=== PATIENT | male | born 1950 | race Caucasian/White ===

== ENCOUNTER 2024-06-26 01:40 | Inpatient (IN) | payer OTHER, MEDICARE ==
[2024-06-26] VITALS (18 sets, daily range): BP systolic 102–134; BP diastolic 67–92; PULSE 60–89; RESP 16–20; TEMP 97.4–98.6; O2SAT 94–100
[~2024-06-26] VITALS: Ht 167.6 cm; Wt 54.8 kg
--- NOTE | 2024-06-26 02:21 | ED.PDOC ---
History of Present Illness HPI Comments 73-year-old male presents with a chief complaint of syncope x last night. Patient states that he had a syncopal episode last night and did hit his head. Patient denies use of blood thinners. Patient also mentions that he has been feeling like "my body is not getting enough oxygen, like my heart isn't getting enough oxygen". Patient denies history of COPD, CHF, or Asthma. No other symptoms or modifying factors present at this time. Time Seen by MD: 02:11 Reviewed Notes: Medications, Allergies Allergies: Coded Allergies: NO KNOWN ALLERGIES (Unverified , 01/12/12) Home Meds No Active Prescriptions or Reported Meds Information Source: Patient Mode of Arrival: Ambulatory Severity: Moderate Timing: Hours Duration: Since onset Prehospital treatment: None Past Medical History PAST MEDICAL HISTORY: Denies Family History Family History: Unknown Social History Smoker: Cigarettes Alcohol: Heavy Drugs: Marijuana, Methamphetamine Lives In: Home Constitutional: denies: chills, diaphoresis, fatigue, fever, malaise, sweats, weakness, others EENTM: denies: blurred vision, double vision, ear bleeding, ear discharge, ear drainage, ear pain, ear ringing, eye pain, eye redness, hearing loss, mouth pain, mouth swelling, nasal discharge, nose bleeding, nose congestion, nose pain, photophobia, tearing, throat pain, throat swelling, voice changes, others Respiratory: denies: cough, hemoptysis, orthopnea, SOB at rest, shortness of breath, SOB with excertion, stridor, wheezing, others Cardiovascular: reports: syncope; denies: chest pain, dizzy spells, diaphoresis, Dyspnea on exertion, edema, irregular heart beat, left arm pain, lightheadedness, palpitations, PND, others Gastrointestinal: denies: abdomen distended, abdominal pain, blood streaked bowels, constipated, diarrhea, dysphagia, difficulty swallowing, hematemesis, melena, nausea, poor appetite, poor fluid intake, rectal bleeding, rectal pain, vomiting, others Genitourinary: denies: burning, dysuria, flank pain, frequency, hematuria, incontinence, penile discharge, penile sore, pain, testicle pain, testicle swelling, urgency, others Neurological: denies: dizziness, fainting, headache, left sided numbness, left sided weakness, numbness, paresthesia, pre-existing deficit, right sided numbness, right sided weakness, seizure, speech problems, tingling, tremors, weakness, others Musculoskeletal: denies: back pain, gout, joint pain, joint swelling, muscle pain, muscle stiffness, neck pain, others Integumetry: denies: bruises, change in color, change in hair/nails, dryness, laceration, lesions, lumps, rash, wounds, others Allergic/Immunocompromised: denies: Difficulty Healing, Frequent Infections, Hives, Itching, others Hematologic/Lymphatic: denies: anemia, blood clots, easy bleeding, easy bruising, swollen glands, others Endocrine: denies: excessive hunger, excessive sweating, excessive thirst, excessive urination, flushing, intolerance to cold, intolerance to heat, unexplained weight gain, unexplained weight loss, others Psychiatric: denies: anxiety, bipolar disorder, depression, hopeless, panic disorder, schizophrenia, sleepless, suicidal, others All Other Systems: Reviewed and Negative Physical Exam General Appearance: No Apparent Distress, Normal HEENT: Normal ENT Inspection, Pharynx Normal, TMs Normal Neck: Full Range of Motion, Non-Tender, Normal, Normal Inspection Respiratory: Chest Non-Tender, Lungs Clear, No Accessory Muscle Use, No Respiratory Distress, Normal Breath Sounds Cardiovascular: No Edema, No JVD, No Murmur, No Gallop, Normal Peripheral Pulses, Regular Rate/Rhythm Breast Exam: Deferred Gastrointestinal: No Organomegaly, Non Tender, No Pulsatile Mass, Normal Bowel Sounds, Soft Genitalia: Deferred Pelvic: Deferred Rectal: Deferred Extremities: No calf tenderness, Normal capillary refill, Normal inspection, Normal range of motion, Non-tender, No pedal edema Musculoskeletal : Apperance: Normal Neurologic: Alert, superintendent gas distribution II-XII nml as Tested, No Motor Deficits, Normal Affect, Normal Mood, No Sensory Deficits Cerebellar Function: Normal Reflexes: Normal Skin: Dry, Normal Color, Warm Lymphatic: No Adenopathy Was a procedure done? Was a procedure done?: No Differential Dx Considerations may include: ACS, CVA, viral syndrome, should abnormality, infectious etiology X-Ray, Labs, Meds, VS Vital Signs Date Time Temp Pulse Resp B/P (MAP) Pulse Ox O2 Delivery O2 Flow Rate FiO2 06/26/24 02:21 78 06/26/24 01:45 98.2 78 22 141/87 (105) 98 98.2 Lab Test 06/26/24 02:45 06/26/24 02:29 Range/Units Urine Color Pending Urine Clarity Pending Urine pH Pending Urine Specific [place] Pending Urine Protein Pending Urine Ketones Pending Urine Blood Pending Urine Nitrite Pending Urine Bilirubin Pending Urine Urobilinogen Pending Urine Leukocyte Esterase Pending Urine RBC Pending Urine Microscopic WBC Pending Urine Squamous Epithelial Cells Pending Urine Bacteria Pending Urine Glucose Pending White Blood Count 10.5 4.4-10.8 10^3/uL Red Blood Count 4.73 4.5-5.90 10^6/uL Hemoglobin 15.0 13.5-17.5 g/dL Hematocrit 43.8 41.0-53.0 % Mean Corpuscular Volume 92.5 80.0-100.0 fL Mean Corpuscular Hemoglobin 31.8 28.0-32.0 pg Mean Corpuscular Hemoglobin Concent 34.3 32.0-36.0 g/dL Red Cell Distribution Width 14.1 11.8-14.3 % Platelet Count 302 140-450 10^3/uL Mean Platelet Volume 8.0 6.9-10.8 fL Neutrophils (%) (Auto) 41.5 37.0-80.0 % Lymphocytes (%) (Auto) 42.4 10.0-50.0 % Monocytes (%) (Auto) 13.8 H 0.0-12.0 % Eosinophils (%) (Auto) 1.6 0.0-7.0 % Basophils (%) (Auto) 0.7 0.0-2.0 % Neutrophils # (Auto) 4.3 1.6-8.6 10 ^3/uL Lymphocytes # (Auto) 4.4 0.4-5.4 10 ^3/uL Monocytes # (Auto) 1.4 H 0-1.3 10 ^3/uL Eosinophils # (Auto) 0.2 0-0.8 10 ^3/uL Basophils # (Auto) 0.1 0-0.2 10 ^3/uL Nucleated Red Blood Cells 0.1 % Sodium Level 140 136-145 mmol/L Potassium Level 3.9 3.5-5.1 mmol/L Chloride Level 104 98-107 mmol/L Carbon Dioxide Level 27 20-31 mmol/L Anion Gap 9 5-15 Blood Urea Nitrogen 16 9-23 mg/dL Creatinine 1.02 0.700-1.30 mg/dL Glomerular Filtration Rate Calc 79 >90 mL/min BUN/Creatinine Ratio 15.7 10.0-20.0 Serum Glucose 74 74-106 mg/dL Calcium Level 9.6 8.7-10.4 mg/dL Troponin I High Sensitivity 5 </=54 ng/L B-Type Natriuretic Peptide 42.35 0-100 pg/mL Time of 1ST Reevaluation: 02:41 Reevaluation 1ST: Unchanged Patient Education/Counseling: Diagnosis, Treatment Family Education/Counseling: No Family Present Departure 1 Departure Time of Disposition: 03:11 (Patient presented with syncope today and should be admitted. Data: 1. I ordered and reviewed the result of at least 3 labs including a CBC, BMP, and troponin. 2. I independently interpreted the following tests: EKG which shows a sinus arrhythmia and a chest x-ray which shows benign chest and a CT head which shows benign brain.Risk:This patient has a high risk of morbidity due to further diagnostic testing or treatment and may suffer from an acute cardiac, neurologic, or infectious disorder. Rationale: Patient should be admitted to the hospital for further management.) Impression: Primary Impression: Syncope and collapse Additional Impression: Generalized weakness Disposition: 09 ADMITTED INPATIENT Admit to: Tele Condition: Guarded e-Prescriptions No Active Prescriptions or Reported Meds Critical Care Note Critical Care Time?: Yes Critical care comment: Syncope and collapse Authorized and Performed by: Rafi Levi MD Total critical care time: Approximately 39 minutes Due to a high probability of clinically significant, life threatening deterioration, the patient required my highest level of preparedness to intervene emergently and I personally spent this critical care time directly and personally managing the patient. This critical care time included obtaining a history; examining the patient; pulse oximetry; ordering and review of studies; arranging urgent treatment with development of a management plan; evaluation of patient's response to treatment; frequent reassessment; and, discussions with other providers. This critical care time was performed to assess and manage the high probability of imminent, life-threatening deterioration that could result in multi-organ failure. It was exclusive of separately billable procedures and treating other patients and teaching time. Please see my other sections and the rest of the note for further information on patient assessment and treatment. Stability Stability form required: No Heart Score Heart Score: Heart Score Response (Comments) Value History N/A 0 EKG N/A 0 Age N/A 0 Risk Factors N/A 0 Troponin N/A 0 Total 0 I personally scribed for RAFI LEVI MD ([email or web address]) on 06/26/24 at 02:21. Electronically submitted by Saurabh Esteban ([email or web address]). RAFI LEVI MD Jun 26, 2024 02:21
[2024-06-26 02:47] LABS: Basophils # (auto) 0.1 10 ^3/uL (0-0.2); Basophils % (auto) 0.7 % (0.0-2.0); Eosinophils # (auto) 0.2 10 ^3/uL (0-0.8); Eosinophils % (auto) 1.6 % (0.0-7.0); Hematocrit 43.8 % (41.0-53.0); Lymphocytes # (auto) 4.4 10 ^3/uL (0.4-5.4); Lymphocytes % (auto) 42.4 % (10.0-50.0); Mean Corpuscular Hemoglobin 31.8 pg (28.0-32.0); Mean Corpuscular Hgb Conc. 34.3 g/dL (32.0-36.0); Mean Corpuscular Volume 92.5 fL (80.0-100.0); Monocytes # (auto) 1.4 10 ^3/uL (0-1.3); Monocytes % (auto) 13.8 % (0.0-12.0); Neutrophils # (auto) 4.3 10 ^3/uL (1.6-8.6); Neutrophils % (auto) 41.5 % (37.0-80.0); Nucleated Red Blood Cells % 0.1 %; Platelet Count (auto) 302 10^3/uL (140-450); Red Blood Cells 4.73 10^6/uL (4.5-5.90); Red Cell Distribution Width 14.1 % (11.8-14.3); White Blood Cell 10.5 10^3/uL (4.4-10.8)
[2024-06-26 02:51] LABS: Chloride 104 mmol/L (98-107); Potassium 3.9 mmol/L (3.5-5.1); Sodium 140 mmol/L (136-145)
[2024-06-26 02:52] LABS: Anion Gap 9 (5-15); Calcium 9.6 mg/dL (8.7-10.4); Carbon Dioxide 27 mmol/L (20-31)
[2024-06-26 02:57] LABS: BUN/Creatinine Ratio 15.7 (10.0-20.0); Blood Urea Nitrogen 16 mg/dL (9-23); Glucose 74 mg/dL (74-106)
--- NOTE | 2024-06-26 02:58 | DVH ---
EXAM: CT HEAD WITHOUT CONTRAST INDICATION: syncope TECHNIQUE: CT of the head without intravenous contrast. Radiation Dose : 1. Head: CT Dose: CTDI volume is 50.99 mGy. Dose-length product is 817.55 mGy*cm The dose indicators for CT are the volume Computed Tomography (CT) Dose Index (CTDIvol) and the Dose Length Product (DLP), and are measured in units of mGy and mGy-cm, respectively. These indicators are not patient dose, but values generated from the CT scanner acquisition factors. The report includes radiation exposure data for exposures received during this examination. COMPARISON: None FINDINGS: There is no evidence of acute intracranial hemorrhage, extra-axial collection, mass effect, midline s hift, herniation or hydrocephalus. The ventricles, sulci and cisterns are age appropriate. The pina-white differentiation is intact. Patchy periventricular and subcortical white matter hypoattenuation is nonspecific but may be related to small vessel ischemic disease. Diffuse sinus disease. The mastoid air cells are clear. The surrounding soft tissues and osseous structures are unremarkable. IMPRESSION: 1. No acute intracranial abnormality. Radiation optimization: All CT scans at this facility use at least one of these dose optimization umesh hniques: automated exposure control mA and/or kV adjustment per patient size (includes targeted exam s where dose is matched to clinical indication) or iterative reconstruction.
--- NOTE | 2024-06-26 02:59 | DVH ---
CHEST RADIOGRAPH Indication: syncope Technique: Single frontal view of the chest was obtained COMPARISON: None FINDINGS: Lines and Tubes: None Lungs: Clear Pleura: No effusion. No pneumothorax. Cardiomediastinal contours: Unremarkable Bones: Unremarkable IMPRESSION: 1. No acute disease.
[2024-06-26 03:05] LABS: Urine Bacteria None Seen /hpf (None Seen)
[2024-06-26 03:13] LABS: Urine Blood Negative /uL (Negative); Urine Clarity Clear (Clear); Urine Color Yellow (Yellow); Urine Mucus FEW (None Seen); Urine Protein, UAD TRACE (Negative); Urine Specific Gravity 1.025 (1.001-1.035); Urine Squamous Epithelial Cell FEW /hpf (<5); Urine Urobilinogen 4 mg/dL (Negative); Urine WBC < 1 /HPF (0-3); Urine pH 5.5 (5.0-9.0)
[2024-06-26 04:10] LABS: COVID19 ANTIGEN SOFIA FIA NEGATIVE (NEGATIVE); Rapid Influenza A Negative (Negative); Rapid Influenza B Negative (Negative)
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
[2024-06-26] MEDS ORDERED: MORPHINE SULFATE INJ 2 MG/ml SYRG IV PRN (04:30)
[2024-06-26] MEDS: methylPREDNISolone SOD SUCC 40 MG/ML VL IV SCH (04:30)
[2024-06-26] MEDS ORDERED: NITROGLYCERIN 0.4 MG SL TAB SL PRN (04:30)
[2024-06-26] MEDS: ATORVASTATIN 20 MG TAB PO ONE (04:48)
[2024-06-26] MEDS: NICOTINE 21MG/24 HR TOPICAL PATCH TD ONE (04:50)
[2024-06-26] MEDS: IOHEXOL 350 MG/ML 100ML IJ ONE (05:10)
[2024-06-26] MEDS: AZITHROMYCIN 500MG/ 250ML 250 ML IV SCH (05:24)
--- NOTE | 2024-06-26 05:55 | DVH ---
CTA Chest with intravenous contrast INDICATION: r/o pe and aortic pathology COMPARISON: Chest radiograph performed earlier same date TECHNIQUE: Multidetector spiral CTA of the chest was performed of the chest with 100 cc of Omnipaque 350 intravenous contrast. PULMONARY ANGIOGRAPHY PROTOCOL was utilized using a bolus-tracking techniqu e centered on the main pulmonary artery. Coronal and sagittal multiplanar and MIP reformats were perf ormed. Radiation Dose : 1. Chest: CTDI volume is 8.88 mGy. Dose-length product is 251.97 mGy*cm The dose indicators for CT are the volume Computed Tomography (CT) Dose Index (CTDIvol) and the Dose Length Product (DLP), and are measured in units of mGy and mGy-cm, respectively. These indicators are not patient dose, but values generated from the CT scanner acquisition factors. The report includes radiation exposure data for exposures received during this examination. FINDINGS: Pulmonary artery: No central, lobar or proximal segmental pulmonary embolus. Lower neck: Normal thyroid. Lungs: Right lower lobe reticular nodular opacities. Right middle lobe left upper lobe opacities. Ri ght lower lobe peribronchial wall thickening. Centrilobular emphysema. Central airways: Patent. Pleura: No pneumothorax. No pleural effusions. Heart/Vascular Structures: The heart is normal in size. Mild coronary artery calcifications. No peric ardial effusion. Thoracic aorta is normal in caliber. Atherosclerotic calcifications in the thoracic aorta. No aneurysm or dissection. Lymph Nodes: No mediastinal or hilar lymphadenopathy. Esophagus:Grossly unremarkable. Musculoskeletal: Unremarkable. Body wall: Unremarkable. Upper abdomen: Unremarkable. IMPRESSION: 1. No evidence of pulmonary embolism. 2. No thoracic aortic aneurysm. 3. Bronchitis and right lower lobe opacities which may be infectious or inflammatory in etiology. Ad ditional opacities in the right middle lobe and left upper lobe may represent atelectasis or addition al infectious or inflammatory etiology. 4. Emphysema.
[2024-06-26 06:17] LABS: Bilirubin, Direct 0.1 mg/dL (<0.3); Bilirubin, Total 0.3 mg/dL (0.2-1.0); Magnesium 2.1 mg/dL (1.6-2.6); Total Protein 6.6 g/dL (5.7-8.2)
[2024-06-26 06:28] LABS: Partial Thromboplastin Time 30.5 SEC (24.5-34.5); Prothrombin Time 10.6 sec (9.3-11.8)
--- NOTE | 2024-06-26 06:51 | ECG ---
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
[2024-06-26] MEDS: IPRATROPIUM BROM 0.5 MG/2.5ML INH SOL NEB SCH (07:36)
[2024-06-26] MEDS: ALBUTEROL SULF 2.5 MG/0.5ML(0.5%) NEB SOLN NEB SCH (07:36)
[2024-06-26] MEDS: NICOTINE 21MG/24 HR TOPICAL PATCH TD SCH (09:24)
[2024-06-26] MEDS: ASPirin 81 mg TAB PO SCH (09:25)
[2024-06-26] MEDS: ENOXAPARIN SOD 40 MG/0.4 ML SYRINGE SC SCH (09:26)
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
--- NOTE | 2024-06-26 11:33 | DVH ---
PROCEDURE: US CAROTID DUPLX W COLOR DOP 06/26/2024 09:52 AM INDICATION: Syncope. COMPARISON: None TECHNIQUE: Real-time grayscale and color Doppler images of the neck arteries were obtained with spect ral analysis performed. The examination was difficult due to patient cooperation, moving and talking throughout the exam. FINDINGS: RIGHT: Intimal thickening throughout the CCA. Small calcified plaques are seen in the CCA and ICA. N ormal spectral waveforms are seen. ICA peak systolic velocity: 113 cm/s ICA end-diastolic velocity: 3 5 cm/s ICA/CCA ratios: 1.3 LEFT: Intimal thickening throughout the CCA. Small calcified plaques are seen in the CCA and ICA. No rmal spectral waveforms are noted. ICA peak systolic velocity: 124 cm/s ICA end-diastolic velocity: 4 8 cm/s ICA/CCA ratios: 1.1 VERTEBRAL ARTERIES: Normal antegrade flow is seen bilaterally. Normal spectral waveforms. IMPRESSION: 1. No hemodynamically significant carotid artery stenosis identified bilaterally. Reference: Radiology 2003; 229:[id number] Normal ICA PSV is <125 cm/sec and no plaque or intimal thickening is visible sonographically addition al criteria include ICA/CCA PSV ratio <2.0 and ICA EDV <40 cm/sec <50% ICA stenosis ICA PSV is <125 cm/sec and plaque or intimal thickening is visible sonographically additional criteria include ICA/CCA PSV ratio <2.0 and ICA EDV <40 cm/sec 50-69% ICA stenosis ICA PSV is 125-230 cm/sec and plaque is visible sonographically additional criter ia include ICA/CCA PSV ratio of 2.0-4.0 and ICA EDV of 40-100 cm/sec 70% ICA stenosis but less than near occlusion ICA PSV is >230 cm/sec and visible plaque and luminal narrowing are seen at pina-scale and color Doppler ultrasound (the higher the Doppler parameters lie above the threshold of 230 cm/sec, the greater the likelihood of severe disease) additional criteria include ICA/CCA PSV ratio >4 and ICA EDV >100 cm/sec
--- NOTE | 2024-06-26 12:05 | DVH ---
EXAM: US BILAT LOW EXT ART DUPLEX HISTORY: pad COMPARISON: None TECHNIQUE: Realtime grayscale and color Doppler ultrasound images of the lower extremity arteries wi th spectral waveform analysis were obtained. FINDINGS: RIGHT: Mild diffuse plaque formation noted. No hemodynamically significant stenosis noted. Multi ph asic waveforms are seen throughout the lower extremity arteries. Peak systolic velocities measure up to 99 cm/s. LEFT: Mild diffuse plaque formation noted. No hemodynamically significant stenosis noted. Monophasi c waveforms in the popliteal, posterior tibial, anterior tibial and dorsalis pedis arteries. The rem ainder of the arteries demonstrate multiphasic waveforms. Peak systolic velocities measure up to 101 cm/s. IMPRESSION: 1. Mild diffuse atherosclerotic disease throughout the bilateral lower extremities without significan t stenosis. 2. Monophasic waveforms in the left popliteal and below knee arteries reflecting vessel hardening and loss of elastic recoil. REFERENCE VALUES, [facility] ([facility]) vascular Imaging Lab Criteria: Peak systolic velocity ranges (in cm/sec) are as follows: <150 cm/s - <20 % stenosis 150-200 cm/s - 20-49% stenosis 200-300 cm/s - 50-75% stenosis >300 cm/s -> 75% stenosis
[2024-06-26] MEDS: cefTRIAXone 1GM/50ML D5W 50 ML IV SCH (14:07)
[2024-06-26 14:23] LABS: Opiate Scree,Urine Neg (NEGATIVE); Phencyclidine Screen, Urine Neg (NEGATIVE)
[2024-06-26 14:24] LABS: Cannabinoid Screen, Urine Pos (NEGATIVE)
[2024-06-26 14:29] LABS: Amphetamine Screen, Urine Pos (NEGATIVE); Barbiturate Scree,Urine Neg (NEGATIVE); Benzodiazephine Screen, Urine Neg (NEGATIVE); Cocaine Screen, Urine Neg (NEGATIVE)
--- NOTE | 2024-06-26 17:57 | DVHSR ---
APPROVED REPORT EXAM: Two-dimensional and M-mode echocardiogram with Doppler and color Doppler. Blood Pressure: 102/72 mmHg INDICATION Syncope RISK FACTORS Height: 5'6", Weight: 115 DIMENSIONS LVDd3.3 (3.8-5.7cm)LA (2D)3.3 (1.9-4.0cm)Aortic Root3.7 (2.0-3.7cm) LVDs2.4 (2.5-4.0cm)LA (MM) (1.9-4.0cm)Aortic Cusp Exc1.1 (1.5-2.0cm) EF (%) 60.0 (55-70%)Rt. Atrium4.7 (1.9-4.0cm)Asc. Aorta cm IVSd1.0 (0.7-1.1cm)RV (D)3.5 (1.8-2.4cm) PWd1.0 (0.7-1.1cm) Mitral Valve MitralMitral Stenosis E wave0.77m/sMV Mean GR.mmHg A wave1.13m/sMV Peak GR.mmHg E/A ratio0.72D MVAcm2 DECEL [id number] 1/2 Timems Aortic Valve Aortic ValveAortic Stenosis V11.11m/Kayla Mean GR.4mmHg V21.37m/Kayla Peak GR.7mmHg LVOT Diameter1.9 (1.8-2.4cm)Doppler AVA2.30cm2 Other Information Technically limited study due to body habitus. Conclusion lvef 65% moderate LVH normal RV function , mild RV enlargement no severe valve abnormaliteis noted
[2024-06-26] MEDS: ATORVASTATIN 20 MG TAB PO SCH (20:18)
[2024-06-27] VITALS (18 sets, daily range): BP systolic 108–128; BP diastolic 66–79; PULSE 63–80; RESP 18–22; TEMP 76–98.1; O2SAT 93–100
[2024-06-27 06:18] LABS: Basophils # (auto) 0.1 10 ^3/uL (0-0.2); Basophils % (auto) 0.7 % (0.0-2.0); Eosinophils # (auto) 0.2 10 ^3/uL (0-0.8); Eosinophils % (auto) 1.7 % (0.0-7.0); Hematocrit 42.6 % (41.0-53.0); Hemoglobin 14.7 g/dL (13.5-17.5); Lymphocytes # (auto) 2.9 10 ^3/uL (0.4-5.4); Lymphocytes % (auto) 31.7 % (10.0-50.0); Mean Corpuscular Hemoglobin 31.3 pg (28.0-32.0); Mean Corpuscular Hgb Conc. 34.5 g/dL (32.0-36.0); Mean Corpuscular Volume 90.8 fL (80.0-100.0); Monocytes # (auto) 1.2 10 ^3/uL (0-1.3); Monocytes % (auto) 13.2 % (0.0-12.0); Neutrophils # (auto) 4.9 10 ^3/uL (1.6-8.6); Neutrophils % (auto) 52.7 % (37.0-80.0); Nucleated Red Blood Cells % 0.1 %; Platelet Count (auto) 287 10^3/uL (140-450); Red Blood Cells 4.69 10^6/uL (4.5-5.90); Red Cell Distribution Width 13.8 % (11.8-14.3); White Blood Cell 9.3 10^3/uL (4.4-10.8)
[2024-06-27 06:46] LABS: Alanine Aminotransferase 14 U/L (7-40); Albumin 3.9 g/dL (3.2-4.8); Alkaline Phosphatase 62 U/L (46-116); Anion Gap 8 (5-15); BUN/Creatinine Ratio 15.8 (10.0-20.0); Blood Urea Nitrogen 12 mg/dL (9-23); Calcium 9.2 mg/dL (8.7-10.4); Carbon Dioxide 23 mmol/L (20-31); Chloride 105 mmol/L (98-107); Glucose 99 mg/dL (74-106); Total Protein 6.6 g/dL (5.7-8.2)
[2024-06-27 06:47] LABS: Bilirubin, Total 0.6 mg/dL (0.2-1.0)
[2024-06-27 06:53] LABS: Aspartate Aminotransferase 10 U/L (13-40); Sodium 136 mmol/L (136-145)
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
[2024-06-27] MEDS: KETOROLAC TROMETH 30 MG/ML 1ML VIAL IV ONE (17:27)
[2024-06-27] MEDS: ACETAMINOPHEN 325 MG TAB PO PRN (17:28)
[2024-06-28] VITALS (18 sets, daily range): BP systolic 101–121; BP diastolic 57–77; PULSE 58–74; RESP 16–22; TEMP 97.4–98.1; O2SAT 72–100
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
[2024-06-29] VITALS (20 sets, daily range): BP systolic 100–121; BP diastolic 54–78; PULSE 69–85; RESP 16–22; TEMP 97.2–98.2; O2SAT 93–100
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
[2024-06-29] MEDS: MELATONIN 5 MG TAB PO PRN (21:16)
[2024-06-30] VITALS (8 sets, daily range): BP systolic 106–118; BP diastolic 60–83; PULSE 76–88; RESP 16–18; TEMP 97.8–98.1; O2SAT 90–100
[2024-06-30] MEDS: ALPRAZolam 0.5 MG TAB PO ONE (09:21)
[2024-06-30 10:07] LABS: QuantiFERON-TB Gold Plus Positive (Negative)
--- NOTE | 2024-06-30 11:20 | DVHDS2 ---
Discharge Summary Date of Admission Jun 26, 2024 at 04:26 Date of Discharge: Jun 30, 2024 Labs/Diagnostic Data: Laboratory Results Test 06/29/24 05:07 06/27/24 05:56 06/26/24 15:52 06/26/24 13:45 HIV (1&2) Antibody Negative (Negative) White Blood Count 9.3 10^3/uL (4.4-10.8) Red Blood Count 4.69 10^6/uL (4.5-5.90) Hemoglobin 14.7 g/dL (13.5-17.5) Hematocrit 42.6 % (41.0-53.0) Mean Corpuscular Volume 90.8 fL (80.0-100.0) Mean Corpuscular Hemoglobin 31.3 pg (28.0-32.0) Mean Corpuscular Hemoglobin Concent 34.5 g/dL (32.0-36.0) Red Cell Distribution Width 13.8 % (11.8-14.3) Platelet Count 287 10^3/uL (140-450) Mean Platelet Volume 7.9 fL (6.9-10.8) Neutrophils (%) (Auto) 52.7 % (37.0-80.0) Lymphocytes (%) (Auto) 31.7 % (10.0-50.0) Monocytes (%) (Auto) 13.2 % (0.0-12.0) Eosinophils (%) (Auto) 1.7 % (0.0-7.0) Basophils (%) (Auto) 0.7 % (0.0-2.0) Neutrophils # (Auto) 4.9 10 ^3/uL (1.6-8.6) Lymphocytes # (Auto) 2.9 10 ^3/uL (0.4-5.4) Monocytes # (Auto) 1.2 10 ^3/uL (0-1.3) Eosinophils # (Auto) 0.2 10 ^3/uL (0-0.8) Basophils # (Auto) 0.1 10 ^3/uL (0-0.2) Nucleated Red Blood Cells 0.1 % Sodium Level 136 mmol/L (136-145) Potassium Level 4.0 mmol/L (3.5-5.1) Chloride Level 105 mmol/L (98-107) Carbon Dioxide Level 23 mmol/L (20-31) Anion Gap 8 (5-15) Blood Urea Nitrogen 12 mg/dL (9-23) Creatinine 0.76 mg/dL (0.700-1.30) Glomerular Filtration Rate Calc 96 mL/min (>90) BUN/Creatinine Ratio 15.8 (10.0-20.0) Serum Glucose 99 mg/dL (74-106) Calcium Level 9.2 mg/dL (8.7-10.4) Total Bilirubin 0.6 mg/dL (0.2-1.0) Aspartate Amino Transferase (AST) 10 U/L (13-40) Alanine Aminotransferase (ALT) 14 U/L (7-40) Alkaline Phosphatase 62 U/L (46-116) Total Protein 6.6 g/dL (5.7-8.2) Albumin 3.9 g/dL (3.2-4.8) TB Test (QFT) Gold Plus Positive (Negative) TB Test (QFT) Nil 0.13 IU/mL (.) TB Test (QFT) Mitogen >10.00 IU/mL (.) TB Test (QFT) Antigen 1 1.32 IU/mL (.) TB Test (QFT) Antigen 2 0.79 IU/mL (.) TB Test (QFT) Criteria Comment (.) Urine Opiates Screen Neg (NEGATIVE) Urine Fentanyl Screen Neg (NEGATIVE) Urine Barbiturates Screen Neg (NEGATIVE) Urine Phencyclidine Screen Neg (NEGATIVE) Urine Amphetamines Screen Pos (NEGATIVE) Urine Benzodiazepines Screen Neg (NEGATIVE) Urine Cocaine Screen Neg (NEGATIVE) Urine Cannabinoids Screen Pos (NEGATIVE) Test 06/26/24 05:43 06/26/24 03:35 06/26/24 02:45 06/26/24 02:29 Prothrombin Time 10.6 sec (9.3-11.8) Prothrombin Time INR 1.00 (0.9-1.15) Activated Partial Thromboplast Time 30.5 SEC (24.5-34.5) Hemoglobin A1c 5.6 % A1C (<5.7) Magnesium Level 2.1 mg/dL (1.6-2.6) Direct Bilirubin 0.1 mg/dL (<0.3) Troponin I High Sensitivity 5 ng/L (</=54) Triglycerides Level 68 mg/dL (< 150) Cholesterol Level 99 mg/dL (< 200) LDL Cholesterol 69 mg/dL (< 100) HDL Cholesterol 25 mg/dL (40-59) Vitamin B12 Level 716 pg/mL (211-911) Vitamin D 25-Hydroxy 34.2 ng/mL (30.0-100) Thyroid Stimulating Hormone (TSH) 2.22 uIU/mL (0.55-4.78) Influenza Type A Antigen Negative (Negative) Influenza Type B Antigen Negative (Negative) SARS-CoV-2 Antigen (Rapid) Negative (NEGATIVE) Urine Color Yellow (Yellow) Urine Clarity Clear (Clear) Urine pH 5.5 (5.0-9.0) Urine Specific [place] 1.025 (1.001-1.035) Urine Protein Trace (Negative) Urine Ketones Negative (Negative) Urine Blood Negative /uL (Negative) Urine Nitrite Negative (Negative) Urine Bilirubin Negative (Negative) Urine Urobilinogen 4 mg/dL (Negative) Urine Leukocyte Esterase Negative /uL (Negative) Urine RBC 1 /hpf (0 - 3) Urine Microscopic WBC < 1 /HPF (0-3) Urine Squamous Epithelial Cells Few /hpf (<5) Urine Bacteria None seen /hpf (None Seen) Urine Mucus Few (None Seen) Urine Glucose Normal mg/dL (Normal) B-Type Natriuretic Peptide 42.35 pg/mL (0-100) Other Laboratory Tests 06/27/24 05:56 Brief Hx & Hospital Course: A 73-year-old male patient with past medical history of hypertension, questionable congestive heart failure, COPD presented to the ER with a chief complaint of a syncopal episode on 06/25. Patient reports that he was checking up on the fence at around 6:00 p.m. when he got sudden episode of cough which was followed by dizziness and blurred vision followed with Patient collapsed and lost consciousness for unknown period of time. He was confused on waking up but denies losing urine or bowel. Denies any jerky movements. Patient denies any palpitations prior to the event. No one witnessed the event. Prior to this episode, patient has been having long-term cough with phlegm for about past year after he got infected with COVID-19. He also reports fever and chills for the past 2 days along with f cyanosis of fingers for past 2 days. Patient reports losing almost 20 lb in the past 90 days. He has not seen a physician in a long time. Says that he has been having back pain for the past 6 months. Has bilateral wheezing and Velcro crackles. Very feeble pulses in the lower extremity. CT angio ruled out aortic abnormalities and PE. Due to the history of fevers, losing weight and chronic cough, TB has to be ruled out. patient complained of anxiety and he said that he takes Xanax at home and he has been taking it over 2 years since he was [facility]. HIV test is negative. Patient lef t AMA in the morning before being seen by me, however on chart review the quantiferon was positive. with high clinical suspicion i informed infection control and recalled patient to come back to ED. Condition at Discharge: Fair Final Diagnosis/Problems List High suspicion of TB Discharge Disposition: AMA 45 Discharge Statement: "Patient was advised to return to the ER or call 911 if any headaches, dizziness, shortness of breath, chest pain, abdominal pain, bleeding, fevers, or worsening of medical condition. Patient was counseled about treatment plan, medications, possible side effects, patientverbalized understanding. All questions were answered to the best of my ability. This discharge took greater then 30 minutes in planning, reviewing documentation, counseling the patient, and discussing with other team members." ASSESSMENT ASSESSMENT Assessment #Syncopal episode, rule out cardiogenic causes #Shortness of breath secondary to likely acute COPD exacerbation #Flu-like symptoms, rule out COVID and influenza #Probable Gram positive/ gram negative pneumonia #Back pain, ruled out aortic dissection #peripheral arterial disease #Hypertension #Possible Congestive heart failure #Unintentional weight loss #Malnutrition #Toe onychomycosis #Rule out TB, Pending QuantiFERON report #Meth user Date of Service: Jun 30, 2024 Billing Provider: DUSTIN GONZALEZ MD Common Visit Codes: 95617-RMY/OBS DISCH DAY >30min DUSTIN GONZALEZ MD Jun 30, 2024 11:20
== END 2024-06-30 10:10 | disposition left against medical advice (07) | DRG 177 ==
LOC: ER 01:40 → OVERFLOW 04:26 → TELE-WESTW 10:33 → TELE-EAST 16:10
PROVIDERS: ADMIT Student in an Organized Health Care Education/Training Program; ATTEND Student in an Organized Health Care Education/Training Program
DX: J15.69 Pneumonia due to other Gram-negative bacteria (principal); J96.20 Acute and chronic respiratory failure, unspecified whether with hypoxia or hypercapnia; J44.1 Chronic obstructive pulmonary disease with (acute) exacerbation; E46 Unspecified protein-calorie malnutrition; A15.9 Respiratory tuberculosis unspecified; Z68.1 Body mass index [BMI] 19.9 or less, adult; J44.0 Chronic obstructive pulmonary disease with (acute) lower respiratory infection; J15.9 Unspecified bacterial pneumonia; I73.9 Peripheral vascular disease, unspecified; Z20.822 Contact with and (suspected) exposure to COVID-19; Z53.29 Procedure and treatment not carried out because of patient's decision for other reasons; I50.9 Heart failure, unspecified; J11.1 Influenza due to unidentified influenza virus with other respiratory manifestations; F17.210 Nicotine dependence, cigarettes, uncomplicated; F41.9 Anxiety disorder, unspecified; B35.1 Tinea unguium; I11.0 Hypertensive heart disease with heart failure; G89.29 Other chronic pain; Z79.899 Other long term (current) drug therapy
CPT/HCPCS: 36415; 70450; 71045; 71275; 80048; 80053; 80061; 80076; 80307; 81001; 82306; 82607; 83036; 83735; 83880; 84443; 84484; 85025; 85610; 85730; 86703; 87081; 87426; 87804; 93005; 93306; 93886; 93925; 94640; 96365; 96372; 99291; G0378; J1885

== ENCOUNTER 2024-07-02 15:33 | Inpatient (IN) | payer OTHER ==
[~2024-07-02] VITALS: Ht 167.6 cm; Wt 53.3 kg
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
[2024-07-02 16:21] LABS: Basophils # (auto) 0.1 10 ^3/uL (0-0.2); Basophils % (auto) 0.6 % (0.0-2.0); Eosinophils # (auto) 0.1 10 ^3/uL (0-0.8); Eosinophils % (auto) 0.4 % (0.0-7.0); Hematocrit 44.5 % (41.0-53.0); Hemoglobin 15.2 g/dL (13.5-17.5); Lymphocytes # (auto) 3.8 10 ^3/uL (0.4-5.4); Lymphocytes % (auto) 30.9 % (10.0-50.0); Mean Corpuscular Hemoglobin 31.3 pg (28.0-32.0); Mean Corpuscular Hgb Conc. 34.1 g/dL (32.0-36.0); Mean Corpuscular Volume 91.6 fL (80.0-100.0); Monocytes # (auto) 1.7 10 ^3/uL (0-1.3); Monocytes % (auto) 13.5 % (0.0-12.0); Neutrophils # (auto) 6.7 10 ^3/uL (1.6-8.6); Neutrophils % (auto) 54.6 % (37.0-80.0); Nucleated Red Blood Cells % 0.1 %; Platelet Count (auto) 445 10^3/uL (140-450); Red Blood Cells 4.86 10^6/uL (4.5-5.90); Red Cell Distribution Width 13.8 % (11.8-14.3); White Blood Cell 12.2 10^3/uL (4.4-10.8)
--- NOTE | 2024-07-02 16:28 | DVH ---
CLINICAL INFORMATION: Shortness of breath. TECHNIQUE: Frontal and lateral chest radiographs were obtained. COMPARISON: None FINDINGS: Lungs: Hyperaeration of the lungs with flattening of the diaphragm suggesting emphysematous changes. No focal consolidation, pneumothorax, or pleural effusion. Cardiac: Heart size is within normal limits. Pulmonary vasculature: Unremarkable Mediastinum/layla: Moderate atherosclerotic calcification of the aortic arch. Bones: Multilevel moderate to severe disc space narrowing in the thoracic spine with associated endpl ate sclerosis and endplate spurring. Other: No other significant finding. IMPRESSION: 1. No evidence of acute disease in the chest. 2. Emphysematous changes and additional nonacute findings as described above
[2024-07-02 16:30] LABS: Chloride 102 mmol/L (98-107); Potassium 4.4 mmol/L (3.5-5.1); Sodium 138 mmol/L (136-145)
[2024-07-02 16:31] LABS: Anion Gap 10 (5-15); Carbon Dioxide 26 mmol/L (20-31)
[2024-07-02 16:36] LABS: Glucose 91 mg/dL (74-106)
[2024-07-02 16:38] LABS: Blood Urea Nitrogen 47 mg/dL (9-23)
[2024-07-02] MEDS: methylPREDNISolone SOD SUCC 125 MG/2 ML VL IV ONE (16:52)
--- NOTE | 2024-07-02 17:59 | ECG ---
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
[2024-07-02] MEDS ORDERED: ONDANSETRON HCL 4 MG/2 ML VIAL IV PRN (19:00)
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
[2024-07-02 19:40] VITALS: PULSE 93; RESP 20; O2SAT 95
[2024-07-02 19:50] VITALS: BP 133/83; PULSE 78; RESP 20; TEMP 98.9; O2SAT 95
[2024-07-02 19:51] VITALS: O2SAT 95
[2024-07-02] MEDS: cefTRIAXone 1GM/50ML D5W 50 ML IV SCH (20:06)
[2024-07-02] MEDS: rifAMPin 300 MG CAP PO SCH (20:07)
[2024-07-02] MEDS: AZITHROMYCIN 500MG/ 250ML 250 ML IV SCH (20:29)
[2024-07-02] MEDS: ACETAMINOPHEN 325 MG TAB PO PRN (20:52)
[2024-07-02 21:13] LABS: Alanine Aminotransferase 61 U/L (7-40); Albumin 4.6 g/dL (3.2-4.8); Alkaline Phosphatase 78 U/L (46-116); Anion Gap 11 (5-15); Aspartate Aminotransferase 36 U/L (13-40); BUN/Creatinine Ratio 34.9 (10.0-20.0); Bilirubin, Total 0.7 mg/dL (0.2-1.0); Blood Urea Nitrogen 44 mg/dL (9-23); Calcium 9.8 mg/dL (8.7-10.4); Carbon Dioxide 26 mmol/L (20-31); Chloride 99 mmol/L (98-107); Glucose 95 mg/dL (74-106); Potassium 4.1 mmol/L (3.5-5.1); Sodium 136 mmol/L (136-145); Total Protein 7.8 g/dL (5.7-8.2)
[2024-07-02 21:23] LABS: CRP High Sensitivity 1.08 mg/dL (<1.0)
[2024-07-02] MEDS: SODIUM CHLOR 0.9% PF (SALINE LOCK) 10ML VIAL/SYR IV SCH (22:02)
[2024-07-02 22:28] VITALS: BP 125/80; PULSE 81; RESP 17; TEMP 97.3; O2SAT 96
[2024-07-03] VITALS (12 sets, daily range): BP systolic 111–130; BP diastolic 62–72; PULSE 65–86; RESP 16–20; TEMP 96.6–98.4; O2SAT 92–100
[2024-07-03 07:01] LABS: Basophils # (auto) 0 10 ^3/uL (0-0.2); Basophils % (auto) 0.2 % (0.0-2.0); Eosinophils # (auto) 0 10 ^3/uL (0-0.8); Hematocrit 41.6 % (41.0-53.0); Hemoglobin 14.5 g/dL (13.5-17.5); Lymphocytes # (auto) 1.8 10 ^3/uL (0.4-5.4); Lymphocytes % (auto) 28.2 % (10.0-50.0); Mean Corpuscular Hemoglobin 31.7 pg (28.0-32.0); Mean Corpuscular Hgb Conc. 34.8 g/dL (32.0-36.0); Monocytes # (auto) 0.3 10 ^3/uL (0-1.3); Monocytes % (auto) 5.6 % (0.0-12.0); Neutrophils # (auto) 4.1 10 ^3/uL (1.6-8.6); Nucleated Red Blood Cells % 0.3 %; Platelet Count (auto) 380 10^3/uL (140-450); Red Blood Cells 4.57 10^6/uL (4.5-5.90); Red Cell Distribution Width 13.6 % (11.8-14.3); White Blood Cell 6.2 10^3/uL (4.4-10.8)
[2024-07-03 07:27] LABS: Alkaline Phosphatase 65 U/L (46-116); Anion Gap 9 (5-15); Aspartate Aminotransferase 24 U/L (13-40); BUN/Creatinine Ratio 34.5 (10.0-20.0); Bilirubin, Total 1.2 mg/dL (0.2-1.0); Calcium 9.2 mg/dL (8.7-10.4); Carbon Dioxide 25 mmol/L (20-31); Chloride 102 mmol/L (98-107); Potassium 4.7 mmol/L (3.5-5.1); Total Protein 6.5 g/dL (5.7-8.2)
[2024-07-03 07:29] LABS: Alanine Aminotransferase 45 U/L (7-40); Blood Urea Nitrogen 39 mg/dL (9-23); Glucose 123 mg/dL (74-106); Sodium 136 mmol/L (136-145)
[2024-07-03] MEDS: ENOXAPARIN SOD 40 MG/0.4 ML SYRINGE SC SCH (09:57)
[2024-07-03] MEDS: IPRATROPIUM BROM 0.5 MG/2.5ML INH SOL NEB PRN (11:01)
[2024-07-03] MEDS: ALBUTEROL SULF 2.5 MG/0.5ML(0.5%) NEB SOLN NEB PRN (11:01)
[2024-07-03] MEDS: HYDROcodone-ACET 5/325MG TAB PO PRN (14:42)
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
[2024-07-04] VITALS (10 sets, daily range): BP systolic 103–134; BP diastolic 69–79; PULSE 54–73; RESP 16–20; TEMP 97–98.6; O2SAT 93–100
[2024-07-04 05:28] LABS: Basophils # (auto) 0 10 ^3/uL (0-0.2); Basophils % (auto) 0.3 % (0.0-2.0); Eosinophils # (auto) 0.1 10 ^3/uL (0-0.8); Eosinophils % (auto) 0.9 % (0.0-7.0); Hematocrit 41.8 % (41.0-53.0); Hemoglobin 14.1 g/dL (13.5-17.5); Lymphocytes # (auto) 3.5 10 ^3/uL (0.4-5.4); Lymphocytes % (auto) 40.7 % (10.0-50.0); Mean Corpuscular Hemoglobin 31.3 pg (28.0-32.0); Mean Corpuscular Hgb Conc. 33.8 g/dL (32.0-36.0); Mean Corpuscular Volume 92.7 fL (80.0-100.0); Monocytes # (auto) 1.2 10 ^3/uL (0-1.3); Neutrophils # (auto) 3.8 10 ^3/uL (1.6-8.6); Neutrophils % (auto) 44.1 % (37.0-80.0); Nucleated Red Blood Cells % 0.1 %; Platelet Count (auto) 341 10^3/uL (140-450); Red Blood Cells 4.51 10^6/uL (4.5-5.90); Red Cell Distribution Width 13.9 % (11.8-14.3); White Blood Cell 8.6 10^3/uL (4.4-10.8)
[2024-07-04 05:53] LABS: Alanine Aminotransferase 33 U/L (7-40); Albumin 3.6 g/dL (3.2-4.8); Alkaline Phosphatase 58 U/L (46-116); Anion Gap 6 (5-15); Aspartate Aminotransferase 16 U/L (13-40); BUN/Creatinine Ratio 23.6 (10.0-20.0); Carbon Dioxide 26 mmol/L (20-31); Chloride 106 mmol/L (98-107); Glucose 81 mg/dL (74-106); Potassium 4.2 mmol/L (3.5-5.1); Sodium 138 mmol/L (136-145)
[2024-07-04 05:54] LABS: Bilirubin, Total 0.5 mg/dL (0.2-1.0)
[2024-07-04 05:55] LABS: Blood Urea Nitrogen 25 mg/dL (9-23)
[2024-07-04] MEDS: ETHAMBUTOL HCL 400 MG TAB PO SCH (12:09)
[2024-07-04] MEDS: PYRIDOXINE HCL 50 MG TAB PO SCH (12:10)
[2024-07-04] MEDS: rifAMPin 300 MG CAP PO SCH (12:10)
[2024-07-04] MEDS: ISONIAZID 300 MG TAB PO SCH (12:12)
[2024-07-04] MEDS: PYRAZINAMIDE 500 MG TAB PO SCH (12:12)
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
[2024-07-05] VITALS (10 sets, daily range): BP systolic 103–120; BP diastolic 64–74; PULSE 58–73; RESP 16–20; TEMP 97.6–98.6; O2SAT 92–97
[2024-07-05 06:05] LABS: Basophils # (auto) 0 10 ^3/uL (0-0.2); Basophils % (auto) 0.3 % (0.0-2.0); Eosinophils # (auto) 0.2 10 ^3/uL (0-0.8); Eosinophils % (auto) 2.2 % (0.0-7.0); Hematocrit 43.1 % (41.0-53.0); Lymphocytes # (auto) 3.3 10 ^3/uL (0.4-5.4); Lymphocytes % (auto) 44.4 % (10.0-50.0); Mean Corpuscular Hemoglobin 31.7 pg (28.0-32.0); Mean Corpuscular Hgb Conc. 34.8 g/dL (32.0-36.0); Mean Corpuscular Volume 91.1 fL (80.0-100.0); Monocytes % (auto) 12.7 % (0.0-12.0); Neutrophils % (auto) 40.4 % (37.0-80.0); Nucleated Red Blood Cells % 0.1 %; Platelet Count (auto) 352 10^3/uL (140-450); Red Blood Cells 4.73 10^6/uL (4.5-5.90); Red Cell Distribution Width 13.7 % (11.8-14.3); White Blood Cell 7.5 10^3/uL (4.4-10.8)
[2024-07-05 06:14] LABS: Chloride 107 mmol/L (98-107); Potassium 3.8 mmol/L (3.5-5.1)
[2024-07-05 06:18] LABS: Carbon Dioxide 26 mmol/L (20-31)
[2024-07-05 06:23] LABS: Alkaline Phosphatase 64 U/L (46-116); Glucose 94 mg/dL (74-106)
[2024-07-05 06:24] LABS: BUN/Creatinine Ratio 22.3 (10.0-20.0); Total Protein 6.2 g/dL (5.7-8.2)
[2024-07-05 06:25] LABS: Alanine Aminotransferase 27 U/L (7-40); Albumin 3.7 g/dL (3.2-4.8)
[2024-07-05 06:32] LABS: Aspartate Aminotransferase 11 U/L (13-40); Bilirubin, Total 0.2 mg/dL (0.2-1.0); Blood Urea Nitrogen 25 mg/dL (9-23)
[2024-07-05 06:37] LABS: Anion Gap 6 (5-15); Sodium 139 mmol/L (136-145)
--- NOTE | 2024-07-05 07:43 | DVHINCON2 ---
Date of service: Jul 04, 2024 Family History: Diabetes mellitus G8 MOTHER FH: heart disease G8 MOTHER FH: kidney disease G8 MOTHER Psoriasis G8 FATHER Allergies: Coded Allergies: NO KNOWN ALLERGIES (Unverified , 01/12/12) Home Meds No Active Prescriptions or Reported Meds Current Medications Current Medications Medications (Trade) Dose Ordered Sig/Kingsley Route PRN Reason Start Time Stop Time Status Last Admin Rifampin 600 mg DAILY PO 07/04/24 10:00 07/04/24 12:10 Isoniazid (Isoniazid) 300 mg DAILY PO 07/04/24 10:00 07/04/24 12:12 Pyrazinamide (Pyrazinamide) 1,500 mg DAILY PO 07/04/24 10:00 07/04/24 12:12 Ethambutol HCl (Myambutol) 1,200 mg DAILY PO 07/04/24 10:00 07/04/24 12:09 Pyridoxine HCl (Vitamin B-6 Tablet) 100 mg DAILY PO 07/04/24 10:00 07/04/24 12:10 Vital Signs Vital Signs Date Time Temp Pulse Resp B/P (MAP) Pulse Ox O2 Delivery O2 Flow Rate FiO2 07/05/24 05:00 97.9 73 18 103/69 (80) 92 97.9 07/04/24 20:00 Room Air* 0 21 Labs/Diagnostic Data Labs Test 07/05/24 05:10 07/04/24 11:53 07/02/24 19:48 07/02/24 16:05 Range/Units White Blood Count 7.5 4.4-10.8 10^3/uL Red Blood Count 4.73 4.5-5.90 10^6/uL Hemoglobin 15.0 13.5-17.5 g/dL Hematocrit 43.1 41.0-53.0 % Mean Corpuscular Volume 91.1 80.0-100.0 fL Mean Corpuscular Hemoglobin 31.7 28.0-32.0 pg Mean Corpuscular Hemoglobin Concent 34.8 32.0-36.0 g/dL Red Cell Distribution Width 13.7 11.8-14.3 % Platelet Count 352 140-450 10^3/uL Mean Platelet Volume 8.1 6.9-10.8 fL Neutrophils (%) (Auto) 40.4 37.0-80.0 % Lymphocytes (%) (Auto) 44.4 10.0-50.0 % Monocytes (%) (Auto) 12.7 H 0.0-12.0 % Eosinophils (%) (Auto) 2.2 0.0-7.0 % Basophils (%) (Auto) 0.3 0.0-2.0 % Neutrophils # (Auto) 3.0 1.6-8.6 10 ^3/uL Lymphocytes # (Auto) 3.3 0.4-5.4 10 ^3/uL Monocytes # (Auto) 1.0 0-1.3 10 ^3/uL Eosinophils # (Auto) 0.2 0-0.8 10 ^3/uL Basophils # (Auto) 0 0-0.2 10 ^3/uL Nucleated Red Blood Cells 0.1 % Sodium Level 139 136-145 mmol/L Potassium Level 3.8 3.5-5.1 mmol/L Chloride Level 107 98-107 mmol/L Carbon Dioxide Level 26 20-31 mmol/L Anion Gap 6 5-15 Blood Urea Nitrogen 25 H 9-23 mg/dL Creatinine 1.12 0.700-1.30 mg/dL Glomerular Filtration Rate Calc 70 >90 mL/min BUN/Creatinine Ratio 22.3 H 10.0-20.0 Serum Glucose 94 74-106 mg/dL Calcium Level 9.0 8.7-10.4 mg/dL Total Bilirubin 0.2 0.2-1.0 mg/dL Aspartate Amino Transferase (AST) 11 L 13-40 U/L Alanine Aminotransferase (ALT) 27 7-40 U/L Alkaline Phosphatase 64 46-116 U/L Total Protein 6.2 5.7-8.2 g/dL Albumin 3.7 3.2-4.8 g/dL Miscellaneous Referred Test (Refrg) Sent to [facility] C-Reactive Protein High Sensitivity 1.08 H <1.0 mg/dL HIV (1&2) Antibody Negative Negative Microbiology Date/Time Source Procedure Growth Status 07/03/24 00:12 Nose MRSA Screen - Final Complete Problems(with codes): (1) Methamphetamine use (2) Shortness of breath (3) Tuberculosis (4) Syncope and collapse (5) Drug intoxication with perceptual disturbance Plan/Recommendation ASSESSMENT AND PLAN ID Problem List: - COPD exacerbation - Suspected pulmonary tuberculosis (TB) - History of methamphetamine and polysubstance use - History of incarceration - Weight loss - Malnutrition Assessment: This is a 73-year-old male with a past medical history of COPD, hypertension (not on medication), prior methamphetamine and polysubstance use, and a history of incarceration, who presents with a 1-month history of cough, shortness of breath, upper back pain, and 15-pound weight loss. Patient reports smoking methamphetamine one week ago, lives in the [facility], and works as a [employer]. Admits to regular marijuana, heavy alcohol, and cigarette use. Family history notable for diabetes, heart disease, and kidney disease in the mother, and psoriasis in the father. On admission, the patient was malnourished and diaphoretic with oxygen saturation 92-93% on room air, tachypnea (respiratory rate 28). Laboratory data: - White blood cell count: 11.15 x 10^3/?L - Platelet count: 445 x 10^3/?L - Sodium: 138 mmol/L - BUN: 47 mg/dL - Creatinine: 1.47 mg/dL AST: 36 U/L ALT: 61 U/L - Total bilirubin: 0.7 mg/dL - HIV test: Negative - Quantiferon Gold (TB): Positive (06/26) - AFB sputum x3: Negative (smear); cultures pending Imaging: - Chest X-ray: No evidence of acute disease, emphysematous changes, no acute findings Given B-type symptoms (weight loss, diaphoresis), positive TB screening, history of incarceration and drug use, patient is at increased risk for pulmonary tuberculosis versus COPD exacerbation. Sputum AFB cultures pending. Plan: - Place on airborne isolation; notify infection control - Initiate empiric RIPE therapy: - rifampin 600 mg PO daily - isoniazid 300 mg PO daily - pyrazinamide 1500 mg PO daily - ethambutol 1200 mg PO daily - pyridoxine 100 mg PO daily - Obtain 2 MTB PCR tests on sputum; if both negative and cultures negative, may discontinue RIPE therapy and consider discharge - Continue ceftriaxone and azithromycin for bronchitis/COPD management per primary team - Start mucolytic, steroids, and bronchodilators as directed by primary service - Recommend CT chest for further evaluation - Monitor clinical response, renal and hepatic function - Provide supportive care (nutrition, fluid/electrolyte optimization) - 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 Plan may be updated as new diagnostic or clinical information becomes available. Thank you for the consult. Infectious Disease will continue to follow. Please contact this service with any questions. Milton Hagan M.D. [facility] Ph: ? History: The patient's chart and medications were reviewed in detail and the patient was seen and examined. History obtained from: Patient Quincy Cabrera is a 73-year-old male with a past medical history of COPD, hypertension, prior methamphetamine and polysubstance use, incarceration, and significant tobacco, alcohol, and marijuana use, who presents with 1 month of cough, shortness of breath, upper back pain, and 15-pound weight loss. Denies hemoptysis, diarrhea, or joint pains. No current medications for COPD or hypertension. Review of Systems: A complete 10-system review of systems was completed and is negative except as detailed in HPI or here. - CONSTITUTIONAL: Endorses unintentional 15-pound weight loss and diaphoresis; denies fever or chills. - HEENT: Not discussed. - RESPIRATORY: Endorses cough and shortness of breath. Denies hemoptysis. - CARDIOVASCULAR: Not discussed. - GASTROINTESTINAL: Denies diarrhea. - GENITOURINARY: Not discussed. - MUSCULOSKELETAL: Denies joint pains. Reports upper back pain. - SKIN: Not discussed. - NEUROLOGICAL: Not discussed. - PSYCHIATRIC: Not discussed. Past Medical History: COPD - Hypertension - Substance use disorder (methamphetamine, alcohol, marijuana) Past Surgical History: Not discussed. Home Medications: Not taking any current medications. Allergies: No known drug allergies. Family History: - Diabetes: Mother - Heart disease: Mother - Kidney disease: Mother - Psoriasis: Father Social History: - [place] - Extensive history of incarceration (released 2003) - Smoking status: Tobacco, regular use - Substance use: Methamphetamine (last use 1 week ago), marijuana (frequent), heavy alcohol use - No sexual history provided Objective: Vital Signs on Arrival: - Temp: 98.9F - Blood Pressure: 133/83 mmHg - Pulse: 78 bpm - Respiratory Rate: 28 - SpO2: 92% on room air Most Recent Vital Signs: Not provided. Admission Weight: Not provided. Physical Exam: General: Appears malnourished and diaphoretic Neck: Supple. No masses. HEENT: PERRL. Normal lids and conjunctiva. Moist mucous membranes. Oropharynx without lesions, exudates or excessive erythema. Normal appearance of the external aspects of the nose and ears. Heart: Regular rhythm, normal rate. No murmur. No lower extremity edema. Lungs: Normal respiratory effort. Clear to auscultation bilaterally. No wheezes. No crackles. Abdomen: Soft. Non-tender. Non-distended. No masses or abdominal hernia. Msk: No digital cyanosis. Normal strength and tone in all 4 limbs. Skin: Warm and dry, no rashes. Neuro: Alert. No facial droop or slurred speech. Extra-ocular movements intact. Sensation intact to soft touch in all 4 limbs. Psych: Appropriate mood. Full affect. Oriented to person, place, time, and situation. Lines: Not discussed. Diagnostic Studies: Laboratory data as described in Assessment above. Pertinent Imaging: - Chest X-ray: No evidence of acute disease. Emphysematous changes. No acute findings. - No additional imaging provided. Isolation Precautions: Airborne isolation for suspected pulmonary tuberculosis. If additional information or corrections arise, please provide for incorporation . Plan discussed with: Patient MILTON HAGAN MD Jul 05, 2024 07:43
--- NOTE | 2024-07-05 10:44 | DVH ---
EXAM: CT CHEST WITH CONTRAST; DATE: 07/05/2024 08:34 AM HISTORY: evaluate for pneumonia COMPARISON: CT scan dated 06/26/2024 TECHNIQUE: Axial images were obtained and reformatted in coronal and sagittal planes. All CT scans a t [facility] are performed using dose modulation techniques as appropriate to a performed exam including the following: Automated exposure control was utilized; adjustment of the MA and/or KV according to patient size; and use of iterative reconstruction technique. CT Dose: CTDI volume is 9.11 mGy. Dose-length product is 343.94 mGy*cm FINDINGS: Lower neck: Unremarkable. Cardiomediastinal: Unremarkable. Lungs: Interval resolution of right middle lobe pulmonary opacities. Improving right lower lobe pulmo nary opacities. Hyperaerated lungs with changes of emphysema interval improvement of bronchial wall thickening right lower lobe segmental bronchial lumen opacification. Bones and Soft Tissues: No acute abnormality. Multilevel degenerative changes of the thoracic spine a re noted. Upper Abdomen: No acute abnormality. Other: None. IMPRESSION: 1. Significant interval improvement of right middle and lower lobes bronchopneumonia.
[2024-07-05] MEDS: IOHEXOL 300 MG/ML 100ML BOTTLE IJ ONE (10:49)
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
[2024-07-05] MEDS: clonazePAM 0.5 MG TAB PO ONE (17:01)
[2024-07-06] VITALS (10 sets, daily range): BP systolic 114–141; BP diastolic 71–83; PULSE 67–80; RESP 16–19; TEMP 97.6–98.2; O2SAT 92–100
[2024-07-06 05:35] LABS: Basophils # (auto) 0.1 10 ^3/uL (0-0.2); Basophils % (auto) 1.2 % (0.0-2.0); Eosinophils # (auto) 0.2 10 ^3/uL (0-0.8); Eosinophils % (auto) 3.2 % (0.0-7.0); Hematocrit 45.6 % (41.0-53.0); Hemoglobin 15.6 g/dL (13.5-17.5); Lymphocytes # (auto) 2.7 10 ^3/uL (0.4-5.4); Lymphocytes % (auto) 35.8 % (10.0-50.0); Mean Corpuscular Hemoglobin 31.5 pg (28.0-32.0); Mean Corpuscular Hgb Conc. 34.2 g/dL (32.0-36.0); Monocytes # (auto) 1.2 10 ^3/uL (0-1.3); Monocytes % (auto) 15.8 % (0.0-12.0); Neutrophils # (auto) 3.3 10 ^3/uL (1.6-8.6); Platelet Count (auto) 371 10^3/uL (140-450); Red Blood Cells 4.96 10^6/uL (4.5-5.90); White Blood Cell 7.5 10^3/uL (4.4-10.8)
[2024-07-06 05:59] LABS: Alanine Aminotransferase 23 U/L (7-40); Albumin 3.7 g/dL (3.2-4.8); Alkaline Phosphatase 61 U/L (46-116); Anion Gap 6 (5-15); Calcium 9.3 mg/dL (8.7-10.4); Carbon Dioxide 26 mmol/L (20-31); Glucose 104 mg/dL (74-106); Potassium 4.2 mmol/L (3.5-5.1); Sodium 139 mmol/L (136-145); Total Protein 6.3 g/dL (5.7-8.2)
[2024-07-06 06:05] LABS: Bilirubin, Total 0.2 mg/dL (0.2-1.0); Blood Urea Nitrogen 24 mg/dL (9-23); Chloride 107 mmol/L (98-107)
[2024-07-06 06:11] LABS: Aspartate Aminotransferase < 8 U/L (13-40)
[2024-07-06] MEDS: clonazePAM 0.5 MG TAB PO ONE (11:21)
--- NOTE | 2024-07-06 11:23 | PEER ---
Peer to Peer Review Time DATE: 07/06/24 TIME: 11:22 Review and Recommendations: discussed with [facility] medical case worker yesterday, that patient have B symptoms for active TB, and seen by ID and infection control notified, pending AFB. switched by to inpatient status DUSTIN GONZALEZ MD July 06, 2024 11:23
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
[2024-07-07 01:00] VITALS: BP 139/81; PULSE 77; RESP 18; TEMP 97.8; O2SAT 96
[2024-07-07 05:00] VITALS: BP 120/77; PULSE 55; RESP 18; TEMP 97.8; O2SAT 93
[2024-07-07 06:44] LABS: Basophils # (auto) 0.1 10 ^3/uL (0-0.2); Basophils % (auto) 0.6 % (0.0-2.0); Eosinophils # (auto) 0.3 10 ^3/uL (0-0.8); Eosinophils % (auto) 3.6 % (0.0-7.0); Hematocrit 45.9 % (41.0-53.0); Hemoglobin 15.6 g/dL (13.5-17.5); Lymphocytes # (auto) 3.5 10 ^3/uL (0.4-5.4); Lymphocytes % (auto) 39.8 % (10.0-50.0); Mean Corpuscular Hemoglobin 31.2 pg (28.0-32.0); Mean Corpuscular Volume 91.9 fL (80.0-100.0); Monocytes # (auto) 1.2 10 ^3/uL (0-1.3); Monocytes % (auto) 13.5 % (0.0-12.0); Neutrophils # (auto) 3.7 10 ^3/uL (1.6-8.6); Neutrophils % (auto) 42.5 % (37.0-80.0); Nucleated Red Blood Cells % 0.2 %; Platelet Count (auto) 377 10^3/uL (140-450); Red Cell Distribution Width 13.9 % (11.8-14.3); White Blood Cell 8.8 10^3/uL (4.4-10.8)
[2024-07-07 07:08] LABS: Albumin 3.9 g/dL (3.2-4.8); Alkaline Phosphatase 58 U/L (46-116); Anion Gap 6 (5-15); Aspartate Aminotransferase 24 U/L (13-40); BUN/Creatinine Ratio 22.2 (10.0-20.0); Blood Urea Nitrogen 22 mg/dL (9-23); Calcium 9.7 mg/dL (8.7-10.4); Carbon Dioxide 27 mmol/L (20-31); Chloride 105 mmol/L (98-107); Glucose 103 mg/dL (74-106); Sodium 138 mmol/L (136-145); Total Protein 6.6 g/dL (5.7-8.2)
[2024-07-07 07:09] LABS: Bilirubin, Total 0.3 mg/dL (0.2-1.0)
[2024-07-07 07:30] LABS: Alanine Aminotransferase 37 U/L (7-40)
[2024-07-07 07:44] VITALS: O2SAT 97
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
--- NOTE | 2024-07-08 14:13 | DVHPN2 ---
Consult Progress Note Date Seen: Jul 05, 2024 Subjective Patient reports: No new complaints (doing well on room air and not having any fevers , SOB and has a coarse cough , crackles in lungs bulaterally . not gettign up and walking ), Other Objective vital signs Vital Sign Date Time Temp Pulse Resp B/P (MAP) Pulse Ox O2 Delivery O2 Flow Rate FiO2 07/07/24 07:44 97 Room Air* 0 21 07/07/24 05:00 97.8 55 18 120/77 (91) 97.8 medications Physical Exam: General: Appears malnourished and diaphoretic Neck: Supple. No masses. HEENT: PERRL. Normal lids and conjunctiva. Moist mucous membranes. Oropharynx without lesions, exudates or excessive erythema. Normal appearance of the external aspects of the nose and ears. Heart: Regular rhythm, normal rate. No murmur. No lower extremity edema. Lungs: Normal respiratory effort. Clear to auscultation bilaterally. No wheezes. No crackles. Abdomen: Soft. Non-tender. Non-distended. No masses or abdominal hernia. Msk: No digital cyanosis. Normal strength and tone in all 4 limbs. Skin: Warm and dry, no rashes. Neuro: Alert. No facial droop or slurred speech. Extra-ocular movements intact. Sensation intact to soft touch in all 4 limbs. Psych: Appropriate mood. Full affect. Oriented to person, place, time, and situation. laboratory and microbiology Laboratory Tests 07/07/24 05:26 Test 07/07/24 05:26 Range/Units Serum Glucose 103 74-106 mg/dL Problem List/Assessment/Plan Problems(with codes): (1) Drug intoxication with perceptual disturbance (2) Syncope and collapse (3) Methamphetamine use (4) Generalized weakness (5) Shortness of breath (6) Tuberculosis Problem List/Assessment/Plan ASSESSMENT AND PLAN ID Problem List: - COPD exacerbation - Suspected pulmonary tuberculosis (TB) - History of methamphetamine and polysubstance use - History of incarceration - Weight loss - Malnutrition Assessment: This is a 73-year-old male with a past medical history of COPD, hypertension (not on medication), prior methamphetamine and polysubstance use, and a history of incarceration, who presents with a 1-month history of cough, shortness of breath, upper back pain, and 15-pound weight loss. Patient reports smoking methamphetamine one week ago, lives in the [facility], and works as a [employer]. Admits to regular marijuana, heavy alcohol, and cigarette use. Family history notable for diabetes, heart disease, and kidney disease in the mother, and psoriasis in the father. On admission, the patient was malnourished and diaphoretic with oxygen saturation 92-93% on room air, tachypnea (respiratory rate 28). Laboratory data: - White blood cell count: 11.15 x 10^3/?L - Platelet count: 445 x 10^3/?L - Sodium: 138 mmol/L - BUN: 47 mg/dL - Creatinine: 1.47 mg/dL AST: 36 U/L ALT: 61 U/L - Total bilirubin: 0.7 mg/dL - HIV test: Negative - Quantiferon Gold (TB): Positive (06/26) - AFB sputum x3: Negative (smear); cultures pending Imaging: - Chest X-ray: No evidence of acute disease, emphysematous changes, no acute findings Given B-type symptoms (weight loss, diaphoresis), positive TB screening, history of incarceration and drug use, patient is at increased risk for pulmonary tuberculosis versus COPD exacerbation. Sputum AFB cultures pending. 07/05: Awaiting [facility] to return , whitecount is improved Plan: - Place on airborne isolation; notify infection control - Initiate empiric RIPE therapy: - rifampin 600 mg PO daily - isoniazid 300 mg PO daily - pyrazinamide 1500 mg PO daily - ethambutol 1200 mg PO daily - pyridoxine 100 mg PO daily - Obtain 2 MTB PCR tests on sputum; if both negative and cultures negative, may discontinue RIPE therapy and consider discharge - Continue ceftriaxone and azithromycin for bronchitis/COPD management per primary team - Start mucolytic, steroids, and bronchodilators as directed by primary service - Recommend CT chest for further evaluation - Monitor clinical response, renal and hepatic function - Provide supportive care (nutrition, fluid/electrolyte optimization) - Battery Checker on substance cessation - Arrange close PCP follow-up after discharge for COPD and substance use support Plan discussed with: Other Dietary Evaluation Review Comments: 1. Conitnue Regular diet as tolerated 2. Encourage continued good PO intakes >75% of meals 3. Monitor wt trends 4. RIPE treatment per ID rec's Expected Outcomes/Goals: Adequate nutrition, weight maintenance. MILTON APPLE MD July 08, 2024 14:13
== END 2024-07-07 08:20 | disposition left against medical advice (07) | DRG 177 ==
LOC: ER 15:37 → OVERFLOW 18:49 → EAST 22:28
PROVIDERS: ADMIT Student in an Organized Health Care Education/Training Program; ATTEND Student in an Organized Health Care Education/Training Program
DX: J15.69 Pneumonia due to other Gram-negative bacteria (principal); N17.0 Acute kidney failure with tubular necrosis; J44.1 Chronic obstructive pulmonary disease with (acute) exacerbation; E44.1 Mild protein-calorie malnutrition; Z68.1 Body mass index [BMI] 19.9 or less, adult; J44.0 Chronic obstructive pulmonary disease with (acute) lower respiratory infection; J15.9 Unspecified bacterial pneumonia; Z53.29 Procedure and treatment not carried out because of patient's decision for other reasons; A15.0 Tuberculosis of lung; N18.9 Chronic kidney disease, unspecified; B35.1 Tinea unguium; E11.22 Type 2 diabetes mellitus with diabetic chronic kidney disease; I12.9 Hypertensive chronic kidney disease with stage 1 through stage 4 chronic kidney disease, or unspecified chronic kidney disease; F17.210 Nicotine dependence, cigarettes, uncomplicated; E11.51 Type 2 diabetes mellitus with diabetic peripheral angiopathy without gangrene; F15.90 Other stimulant use, unspecified, uncomplicated; Z82.49 Family history of ischemic heart disease and other diseases of the circulatory system; Z83.3 Family history of diabetes mellitus; Z84.1 Family history of disorders of kidney and ureter; Z79.899 Other long term (current) drug therapy
CPT/HCPCS: 36415; 71046; 71260; 80048; 80053; 85025; 86141; 86703; 87081; 93005; 94640; 96365; 96368; 96375; G0378